=== PATIENT | male | born 1980 | race African-American/Black ===

== ENCOUNTER 2016-07-24 20:01 | Emergency (ER) | payer SELFPAY ==
[~2016-07-24] VITALS: Ht 188 cm; Wt 59.9 kg
[2016-07-24] MEDS ORDERED: IV NORMAL SALINE 1000ML BAG 1,000 ML IV SCH (20:18)
[2016-07-24 20:30] LABS: BASO # 0.1 x10^3/uL (0.0-0.2); BASO % 1 % (0-3); EOS % 2 % (0-3); HEMATOCRIT 47.9 % (39.0-53.0); HEMOGLOBIN 16.3 g/dL (13.0-17.5); LYMPH # 1.8 x10^3/uL (1.0-4.8); LYMPH % 35 % (24-48); MEAN CORPUSCULAR HEMOGLOBIN 32 pg (25-35); MEAN CORPUSCULAR HGB CONC 34 g/dL (31-37); MEAN CORPUSCULAR VOLUME 94 fL (79-100); MONO % 7 % (0-9); NEUT % 55 % (31-73); PLATELET COUNT 209 x10^3/uL (140-400); RED BLOOD COUNT 5.08 x10^6/uL (4.30-5.70); RED CELL DISTRIBUTION WIDTH 13.6 % (11.5-14.5); WHITE BLOOD COUNT 5.2 x10^3/uL (4.0-11.0)
[2016-07-24] MEDS ORDERED: fentaNYL PF VIAL 100 MCG/2 ML VIAL IV PRN (20:30)
[2016-07-24] MEDS ORDERED: DIPHTH,PERTUSS(ACELL),TET TOX 0.5 ML DISP.SYRIN. VAX IM ONE (20:30)
[2016-07-24] MEDS ORDERED: ONDANSETRON PF 4 MG/2 ML VIAL. IV ONE (20:30)
[2016-07-24 20:40] LABS: PROTHROMBIN TIME PATIENT 12.5 SEC (11.7-14.0)
[2016-07-24 20:46] LABS: CALCIUM 8.8 mg/dL (8.5-10.1); CREATININE 0.9 mg/dL (0.7-1.3); GFR 95.5; POTASSIUM 3.6 mmol/L (3.5-5.1)
[2016-07-24] MEDS ORDERED: fentaNYL PF VIAL 100 MCG/2 ML VIAL ONE (20:55)
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
[2016-07-24 21:17] LABS: BILIRUBIN,URINE NEGATIVE (NEG); GLUCOSE,URINE NEGATIVE (NEG); NITRITE,URINE NEGATIVE (NEG); PROTEIN,URINE NEGATIVE (NEG-TRACE)
[2016-07-24 21:22] LABS: BACTERIA,URINE 0 /HPF (0-FEW); RBC,URINE 0 /HPF (0-2); SQUAMOUS EPITHELIAL CELL,UR OCC /LPF; WBC,URINE 0 /HPF (0-4)
[2016-07-24 21:23] LABS: BARBITURATES NEG (NEG); BENZODIAZEPINES NEG (NEG); CANNABINOIDS POS (NEG); COCAINE POS (NEG); METHADONE NEG (NEG); OPIATES NEG (NEG); PHENCYCLIDINE POS (NEG)
[2016-07-24] MEDS ORDERED: AMOXICILLIN/K CLAV 875/125MG TABLET. PO ONE (21:45)
[2016-07-24] MEDS ORDERED: NAPROXEN 500 MG TABLET PO ONE (21:45)
[2016-07-24] MEDS ORDERED: oxyCODONE/APAP 10/325 1 TAB TABLET PO ONE (21:45)
[2016-07-24] MEDS ORDERED: OXYC-250 PO (22:04)
[2016-07-24] MEDS ORDERED: NAPR250T2 PO (22:04)
[2016-07-24] MEDS ORDERED: AMOX1TAB61 PO (22:04)
[2016-07-24] MEDS ORDERED: LIDOCAINE 1% / SOD BICARB 8.4% 20 ML VIAL. IJ ONE (22:30)
[2016-07-24 22:38] VITALS: BP 124/76
--- NOTE | 2016-07-25 06:11 | EKG ---
[facility] [address] [place] [address] Test Date: 2016-07-24 Test Time: 20:49:24 Pat Name: WALKER TERRAZAS Department: Room: Gender: M [employer]: : 1980 Requested By: KALEN MARKHAM Order Number: [id number] Reading MD: Andres Lawson Measurements Intervals [place] Rate: 90 P: 59 MS: 156 QRS: 52 QRSD: 80 T: 42 QT: 354 QTc: 437 Interpretive Statements SINUS RHYTHM Electronically Signed On 07-29-2016 14:03:50 CDT by Andres Lawson
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
== END 2016-07-24 23:05 | disposition home or self-care (01) ==
LOC: ER 20:01
DX: S02.609A Fracture of mandible, unspecified, initial encounter for closed fracture (principal); S02.40FA Zygomatic fracture, left side, initial encounter for closed fracture; F12.10 Cannabis abuse, uncomplicated; Y08.89XA Assault by other specified means, initial encounter; Y93.89 Activity, other specified; Y99.8 Other external cause status; Y92.89 Other specified places as the place of occurrence of the external cause
CPT/HCPCS: 12011; 36415; 70450; 70486; 71010; 72125; 80048; 80305; 80320; 81001; 85027; 85610; 85730; 86850; 86900; 86901; 90471; 90715; 93005; 96361; 96374; 96375; 99285; J2405; J3010; J7030; G0480; G0481

== ENCOUNTER 2016-08-01 10:41 | Emergency (ER) | payer SELFPAY ==
[~2016-08-01] VITALS: Ht 188 cm; Wt 59.9 kg
[~2016-08-01 10:41] MED LIST: AMOX1TAB61 PO; NAPR250T2 PO; OXYC-250 PO
[2016-08-01 10:45] VITALS: BP 117/63
--- NOTE | 2016-08-01 11:21 | PHYS DOC ---
Past Medical History Past Medical History: No Pertinent History Past Surgical History: No Surgical History Alcohol Use: Occasionally Drug Use: Marijuana Adult General Chief Complaint Chief Complaint: WOUND RECHECK/SUTURE REMOVAL [facility] HPI Patient is a 35 year old male presents emergency department stating that he had sutures placed above his left thigh approximately July 24. He denies any drainage or discharge or any signs and symptoms of infection coming from the area. He denies any fever, chills. Review of Systems Review of Systems Constitutional: Denies fever or chills [] Eyes: Denies change in visual acuity, redness, or eye pain [] HENT: Denies nasal congestion or sore throat [] Respiratory: Denies cough or shortness of breath [] Cardiovascular: No additional information not addressed in HPI [] GI: Denies abdominal pain, nausea, vomiting, bloody stools or diarrhea [] : Denies dysuria or hematuria [] Musculoskeletal: Denies back pain or joint pain [] Integument: Denies rash or skin lesions. Patient states he is here for suture removal[] Neurologic: Denies headache, focal weakness or sensory changes [] Endocrine: Denies polyuria or polydipsia [] Allergies Allergies Allergies Coded Allergies Type Severity Reaction Last Updated Verified No Known Drug Allergies 07/24/16 No Physical Exam Physical Exam Constitutional: Well developed, well nourished, no acute distress, non-toxic appearance. [] HENT: Normocephalic, atraumatic, bilateral external ears normal, oropharynx moist, no oral exudates, nose normal. [] Eyes: PERRLA, EOMI, conjunctiva normal, no discharge. [] Neck: Normal range of motion, no tenderness, supple, no stridor. [] Cardiovascular:Heart rate regular rhythm Lungs & Thorax: no respiratory distress Skin: Warm, dry, no erythema, no rash. Patient with 5 interrupted sutures noted in the left upper eye lid. No drainage discharge or redness noted from the site. The edges appear to be approximated very well. Back: No tenderness Extremities: No tenderness, no cyanosis, no clubbing, ROM intact, no edema. [] Neurologic: Alert and oriented X 3, normal motor function, normal sensory function, no focal deficits noted. [] Psychologic: Affect normal, judgement normal, mood normal. [] Current Patient Data Vital Signs Vital Signs Date Time Temp Pulse Resp B/P (MAP) Pulse Ox O2 Delivery O2 Flow Rate FiO2 08/01/16 10:45 98.0 94 16 95 Room Air 98.0 EKG EKG [] Radiology/Procedures Radiology/Procedures [] Course & Med Decision Making Course & Med Decision Making Pertinent Labs and Imaging studies reviewed. (See chart for details) Sutures removed without difficulty. Patient was provided with signs and symptoms of infection. Recommended keeping the area clean and dry wash it with soap and water twice and placing antibiotic ointment on the area. Patient will be discharged home in stable condition signs symptoms to return back to emergency department been provided. [] Dragon Disclaimer Dragon Disclaimer This electronic medical record was generated, in whole or in part, using a voice recognition dictation system. Departure Departure Impression: Primary Impression: Visit for suture removal Disposition: HOME, SELF-CARE Condition: STABLE Referrals: UNKNOWN PCP NAME (PCP) Patient Instructions: Suture Removal-Brief Additional Instructions: Activity as tolerated Tylenol or Ibuprofen for pain and discomfort Keep the area clean and dry. Clean the site with soap and water twice a day and apply antibiotic ointment to the area Continue to watch for signs and symptoms of infection: redness, warmth, tenderness or any yellow/greenish drainage noted if this should happen followup with your primary care provider immediately Followup with primary care provider immediately Return to emergency department as needed for signs and symptoms that become worse. DAVID SALAZAR APRN August 01, 2016 11:21
== END 2016-08-01 11:26 | disposition home or self-care (01) ==
LOC: ER 10:41
DX: S71.112D Laceration without foreign body, left thigh, subsequent encounter (principal); F12.10 Cannabis abuse, uncomplicated; X58.XXXD Exposure to other specified factors, subsequent encounter; Y92.89 Other specified places as the place of occurrence of the external cause; Y99.8 Other external cause status
CPT/HCPCS: 99281